=== PATIENT | female | born 1955 | race Caucasian/White ===

== ENCOUNTER 2021-12-09 09:51 | Outpatient (CLI) | payer MEDICARE, SELFPAY ==
--- NOTE | 2021-12-09 | ECG_ITS ---
Measurements Intervals [place] Rate: 64 P: 7 CT: 164 QRS: 3 QRSD: 102 T: 33 QT: 414 QTc: 428 Interpretive Statements SINUS RHYTHM VOLTAGE CRITERIA FOR LVH DELAYED PRECORDIAL R/S TRANSITION BORDERLINE ECG Electronically Signed On 12-09-2021 17:11:54 CDT by Nikolai Matt D.O.
[2021-12-09 10:47] LABS: Hematocrit 41.6 % (37.0-47.0); Hemoglobin 13.5 g/dL (12.0-15.0)
[2021-12-09 10:56] LABS: Hemoglobin A1C 5.8 % (<5.7)
[2021-12-09 11:02] LABS: Albumin Level 4.9 g/dL (3.5-5.1); Estimated Glomerular Filt Rate > 60; Glucose 137 mg/dL (65-110)
== END 2021-12-09 09:52 | disposition home or self-care (01) ==
PROVIDERS: PCP Physician Assistant; Visit Provider Orthopaedic Surgery
DX: Z01.818 Encounter for other preprocedural examination (principal); M16.11 Unilateral primary osteoarthritis, right hip; E11.9 Type 2 diabetes mellitus without complications; I10 Essential (primary) hypertension
CPT/HCPCS: 36415; 82040; 82565; 82947; 83036; 85014; 85018; 93005

== ENCOUNTER 2022-02-15 07:43 | Outpatient (CLI) | payer MEDICARE, SELFPAY ==
[2022-02-15 08:53] LABS: Hematocrit 39.3 % (37.0-47.0); Hemoglobin 12.7 g/dL (12.0-15.0)
[2022-02-15 08:59] LABS: Albumin Level 4.6 g/dL (3.5-5.1); Anion Gap 10 mmol/L (8-16); Blood Urea Nitrogen 25 mg/dL (7-17); Calcium 9.3 mg/dL (8.4-10.2); Carbon Dioxide 29 mmol/L (22-30); Chloride 101 mmol/L (98-107); Estimated Glomerular Filt Rate > 60; Glucose 137 mg/dL (65-110); Potassium 4.1 mmol/L (3.4-5.0); Sodium 140 mmol/L (137-145)
[2022-02-15 09:14] LABS: Urine Cotinine NEGATIVE
[2022-02-15 09:18] LABS: Hemoglobin A1C 5.4 % (<5.7)
[2022-02-16 11:53] LABS: Basophils Percent Auto 0.5 % (0.2-1.2); Eosinophils Absolute Auto 0.1 K/mm3 (0-0.3); Eosinophils Percent Auto 1.7 % (0-4.4); Immature Granulocyte Absolute 0.01 K/mm3 (0.00-0.031); Immature Granulocyte Percent A 0.2 % (0-0.5); Lymphocytes Absolute Auto 1.82 K/mm3 (0.9-3.2); Mean Corpuscular HGB Conc 30.2 g/dl (32-36); Mean Corpuscular Hemoglobin 28.9 pg (26-34); Mean Corpuscular Volume 95.5 fl (80-100); Mean Platelet Volume 11.1 fl (7.4-10.4); Monocytes Absolute Auto 0.4 K/mm3 (0.1-0.6); Monocytes Percent Auto 6.6 % (2.6-8.5); Neutrophils Absolute Auto 4.1 K/mm3 (1.3-6.7); Platelet Count Result 192 k/mm3 (150-375); Red Blood Count 4.47 M/mm3 (4.2-5.4); Red Cell Distribution Width 13.3 % (11.5-14.5); White Blood Count 6.5 K/mm3 (4.5-10.0)
== END 2022-02-15 07:44 | disposition home or self-care (01) ==
LOC: ANHSURGERY 07:47
PROVIDERS: PCP Physician Assistant; Visit Provider Orthopaedic Surgery
DX: M16.11 Unilateral primary osteoarthritis, right hip (principal); Z01.818 Encounter for other preprocedural examination
CPT/HCPCS: 80048; 80307; 82040; 83036; 85014; 85018; 85025; 87081

== ENCOUNTER 2022-03-07 00:15 | Day surgery (SDC) | payer MEDICARE, SELFPAY ==
--- NOTE | 2022-02-15 07:49 | PC.NURSE ---
Report to the Outpatient Waiting Room, entrance under the green pavilion located off [facility], at time _0600_ on date _[id number]_. OR Time: _0730_. - You and your visitor will be asked a series of questions to screen for COVID 19 for your protection. - Only one visitor is allowed at this time. - The patient visitor is requested to leave or wait in car when not with patient. - A mask is required within the hospital. Patients may have clear liquids (water, carbonated beverages, clear teas, apple juice) until 3 hours prior to surgery with a maximum of 20 ounces. - No food from midnight until time of surgery Take the following medications with a SIP of water the morning of surgery: __Carvidilol and Terazosin Medications to discontinue per physician Date to take last dose Please no make-up, nail greenlandic, hairspray, perfume, deodorant, or body powder the day of surgery. No jewelry (including any body piercings) or valuables the day of surgery, leave them at home. Please take a shower or bath the night before, or the morning of, surgery with an antibacterial soap. Wear comfortable, loose fitting clothing. - Jewelry must be removed prior to entering the operating room. Rings and piercings that are not removed may be cut off. - The hospital will not accept responsibility for valuables. - Please leave all valuables, including medications, at home the day of surgery. If you are going home after surgery, a licensed class a regional drivers must drive you home. - NO public transportation without another adult. - We recommend that an adult stay with you for 24 hours following discharge. - We also recommend that you do not drive, make important decision, drink alcoholic beverages, or take any drugs that were not prescribed by your health care provider for at least 24 hours after your discharge time. Follow any additional instructions given to you from your surgeon. If you or anyone in your household have experienced Covid symptoms in the past week, please notify your surgeon or the nurse liaison at the phone number below for possible testing. Telephone instructions given to _Patient___and asked if any additional questions and then verbalized understanding. Patient advised to call surgeon office or pre surgery nurse liaison [phone] if any additional questions.
[2022-02-15 07:56] VITALS: BP 180/86; PULSE 76; RESP 16; TEMP 37.2; O2SAT 95; BMI 37.5
--- NOTE | 2022-03-06 11:27 | P.PNAN_ITS ---
Anes - Initial Pre Proc Eval Procedure: Operation Date: 03/07/22 07:30 Proposed Procedures p Right Total Hip Arthroplasty - Javid Choe MD Date/Time: 03/06/22 11:27 Surgeon: Javid Choe MD Pre Op Diagnosis: Prim O A Right Hip Patient Data Age: 67 Gender: F Height: 1.6 m Weight: 96.3 kg Last Vital Signs Temp 37.2 C 02/15/22 07:56 Pulse 76 02/15/22 07:56 Resp 16 02/15/22 07:56 BP 180/86 H 02/15/22 07:56 Pulse Ox 95 02/15/22 07:56 O2 Del Method Room Air 02/15/22 07:56 Allergies Allergy/AdvReac Type Severity Reaction Status Date / Time nateglinide [From Starlix] Allergy Mild Itching Verified 03/07/22 06:06 Home Medications Medication Instructions Recorded Confirmed Type carvedilol 25 mg tablet 25 mg PO Q12H 10/31/21 03/07/22 History ergocalciferol (vitamin D2) 1,250 1,250 mcg PO WEEKLY 10/31/21 03/07/22 History mcg (50,000 unit) capsule glimepiride 2 mg tablet 2 mg PO QPM 10/31/21 03/07/22 History lisinopril 20 mg tablet 20 mg PO QPM 10/31/21 03/07/22 History lisinopril 20 1 tablet PO QAM 10/31/21 03/07/22 History mg-hydrochlorothiazide 25 mg tablet metformin 500 mg tablet 500 mg PO BIDWMEAL 10/31/21 03/07/22 History simvastatin 40 mg tablet 40 mg PO QPM 10/31/21 03/07/22 History glimepiride 4 mg tablet 4 mg PO DAILY 02/15/22 02/15/22 History terazosin 2 mg capsule 2 mg PO BID 02/15/22 03/07/22 History Patient hx anesthesia problems: none Family hx anesthesia problems: none Results Review: All pre-operative results and documents have been reviewed as part of the pre- operative evaluation. [facility] Past Medical History Medical History (Updated 03/06/22 @ 11:28 by Lobito Hernandez MD) Diabetes Hyperlipidemia Hypertension Obesity Osteoarthritis Surgical History Surgical History History of total left hip replacement (~09/19/16) Family History Family History Mother Family history of arthritis Social History Social History Smoking packs per day: 0.7 Smoking cigarettes per day: 14.0 Years smoked: 22 Smoking pack-years: 15.40 Smoking status: Former smoker Tobacco type: cigarettes Smoking end date: 07/16/00 Living arrangements: with family Spiritual care concerns: No Anes - Eval Final PreProcedure Day of Procedure 03/06/22 11:27 Patient weight: obese Heart: regular rate and rhythm Lungs: clear to auscultation and normal air movement Airway: Mallampati scale class II Neurological: alert and oriented Last oral intake: >/= 8 hours ASA classification: III Emergent: no Anesthetic plan: proceed Anesthesia type and monitoring: general ETT Results Review: All pre-operative results and documents have been reviewed as part of the pre- operative evaluation. Informed Consent: The patient's anesthetic plan and its attendant risks and benefits were discussed with the patient/family/POA. Questions were solicited and answers provided to the satisfaction of the patient/family/POA.
[2022-03-07] VITALS (16 sets, daily range): BP systolic 136–199; BP diastolic 59–98; PULSE 56–78; RESP 12–16; TEMP 35.7–36.7; O2SAT 93–100
--- NOTE | ~2022-03-07 | XR_ITS ---
EXAMINATION: XR hip RT min 2V DATE: 03/07/2022 09:51 INDICATION: Total right hip arthroplasty. Postop. TECHNIQUE: 2 views of right hip were obtained. COMPARISON: Right hip radiographs 10/31/2021 FINDINGS: There is a total right hip arthroplasty in near-anatomic alignment. No fracture. There is g as in the soft tissues, consistent with recent surgery. IMPRESSION: 1. Total right hip arthroplasty in near-anatomic alignment. Reviewed, dictated and finalized at location A.
[2022-03-07] MEDS: ACETAMINOPHEN 500 MG TABLET 1000 MG PO (06:22)
[2022-03-07] MEDS: LACTATED RINGERS 1,000 ML 30 ML IV CONT ×2 (07:05→09:40)
[2022-03-07] MEDS: TRANEXAMIC ACID 1,000MG/ISO100 1,000 MG/100 ML BAG 200 MG IVPB (07:10)
[2022-03-07 07:23] LABS: Glucose Point of Care 133 mg/dl (65-105)
--- NOTE | 2022-03-07 07:25 | WPDHPUPDATE1 ---
History and Physical Update Update Date/Time: 03/07/22 07:25 History and Physical has been reviewed, including an updated exam of the patient. There are NO changes in the patient's condition. Risks, benefits, and alternatives have been discussed and questions answered. Patient agrees to proceed with procedure.
[2022-03-07] MEDS: ceFAZolin 2 GM/D5W 50 ML 2 GM/50 ML BAG IVPB (07:29)
--- NOTE | 2022-03-07 09:34 | W.PM.PROC2 ---
Procedure Note - Detailed Date of Procedure 03/07/22 Pre-op Diagnosis Prim O A Right Hip Post-op Diagnosis Same Procedure Performed Right Total Hip Arthroplasty Surgeon Javid Choe MD Sloop Captain Shanique Cardenas PA-C Anesthesia General Findings Contracture. Osteophytes. Description of Procedure The patient was given preoperative antibiotics. A general anesthetic was administered. The patient was carefully placed in the lateral decubitus position on the PEG board. The shoulders and hips were carefully positioned for component and leg length positioning reference. The hip was prepped and draped in the usual sterile fashion. A longitudinal incision was created over the posterior aspect of the greater trochanter. Careful dissection was brought down through the deep fascia with electrocautery. A minimally invasive optimized posterior approach to the hip was performed. The short external rotators and capsule were taken down in an L-shaped capsulotomy. The tissue was tagged for later repair using number 2 high strength suture. The femoral neck was measured and taken in situ. The femoral head was removed. The acetabulum was carefully exposed. The inferior capsule was released. The labrum was resected. The acetabulum was sequentially reamed to the intended cup size. The cup was impacted into position with excellent press-fit. Typical anatomic landmarks, including the bony contact points as well as the inferior transverse acetabular ligament were used to confirm cup positioning with preoperative templating. Attention was turned to the femur, which was carefully exposed. The hip was reamed and then broached sequentially. Excellent press-fit was obtained with the broach. The hip was trialed. Measurements were utilized, including the lesser trochanter as well as the center of the femoral head and the tip of the trochanter, and excellent assessment of the offset and leg lengths were confirmed. The real component was impacted into position. Trialing confirmed appropriate leg length and offset with soft tissue balancing as well apparent feel of the leg, both at the knee and the heel. Soft tissues were assessed using the the iliotibial band. Reduction of the posterior capsule and external rotators were also used as a secondary assessment. The hip was copiously irrigated with pulsatile lavage antibiotic solution periodically throughout the procedure. The real components were then assembled and reduced. The hip was stable throughout typical maneuvers, including extension, external rotation to 70 degrees, the position of sleep as well as flexion to 90 degrees with internal rotation past 45 degrees. The shake test confirmed stability without impingement. Osteophytes were removed as necessary. The short external rotators and capsule were repaired back to the posterior trochanter through drill holes. The deep fascia was repaired with running number 2 Quill suture, followed by 0 Stratafix suture and 2-0 Stratafix suture in the dermis. Steri-Strips were placed on the skin, followed by a sterile silver occlusive dressing. There were no complications. Meticulous hemostasis was maintained with the AquaMantys device. The patient was brought to the recovery room in stable condition. There were no complications. Physician dam tender assistant, Shanique Cardenas PA-C, required for surgery; including patient positioning, draping, tissue retraction, maintaining instrument position, hip dislocation/ relocation, wound closure, and dressing placement. Implants The Accolade II hip stem, 127 degree size 4 , was utilized with excellent press-fit. The 50 mm Trident II acetabular component was impacted with excellent press-fit stability. The +0 , 36 mm Biolox ceramic femoral head was utilized. Estimated Blood Loss 200 Drains No Packing No Pathology None sent Complications No immediate complications Condition Stable Disposition PACU [facility] Billing Surgery - Charge Forwa
[2022-03-07] MEDS: fentaNYL CITRATE INJ (*CRX) 100 MCG/2 ML VIAL 25 MCG IV PUSH ×7 (09:48→10:23)
[2022-03-07 10:13] LABS: Glucose Point of Care 196 mg/dl (65-105)
[2022-03-07] MEDS: traMADol HCL (*CRX) 50 MG TABLET PO (11:02)
[2022-03-07] MEDS: lisinopriL 20 MG TABLET PO (11:16)
--- NOTE | 2022-03-07 12:23 | SUR.PHASEII ---
RN called therapy to inform them of this patient.
--- NOTE | 2022-03-07 13:52 | SUR.PHASEII ---
Patient is unhooked from the monitors working with PT and OT at this time.
== END 2022-03-07 14:42 | disposition home or self-care (01) ==
PROVIDERS: PCP Physician Assistant; Visit Provider Orthopaedic Surgery
PROC: (CPT 27130; principal; 2022-03-07 07:30)
DX: M16.11 Unilateral primary osteoarthritis, right hip (principal); M25.751 Osteophyte, right hip; M24.551 Contracture, right hip; Z79.84 Long term (current) use of oral hypoglycemic drugs; E11.9 Type 2 diabetes mellitus without complications; I10 Essential (primary) hypertension; M19.90 Unspecified osteoarthritis, unspecified site; E78.5 Hyperlipidemia, unspecified; Z87.891 Personal history of nicotine dependence; E66.9 Obesity, unspecified; Z68.36 Body mass index [BMI] 36.0-36.9, adult; M25.551 Pain in right hip; E78.00 Pure hypercholesterolemia, unspecified
CPT/HCPCS: 27130; 36415; 73502; 82948; 86850; 86900; 86901; 97110; 97161; 97165; 97530; 97535; A9270; C1776; J0171; J0330; J0690; J1100; J1170; J1885; J2250; J2270; J2405; J2704; J2710; J2795; J3010; J7120